=== PATIENT | male | born 1995 | race Caucasian/White ===

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

== ENCOUNTER 2020-05-06 18:09 | Emergency (ER) | payer BC, OTHER ==
[~2020-05-06] VITALS: Ht 185.4 cm; Wt 74.6 kg
--- NOTE | 2020-05-06 22:09 | REPVR ---
PROCEDURE INFORMATION: Exam: XR Abdomen, 1 View Exam date and time: 05/06/2020 9:45 PM Age: 25 years old Clinical indication: Other: Constipation R/O obstruction TECHNIQUE: Imaging protocol: XR of the abdomen. Views: Frontal supine view of the abdomen. 1 View. COMPARISON: No relevant prior studies available. FINDINGS: Gastrointestinal tract: Moderate stool throughout much of the colon. Minimal gas throughout the GI tract without abnormal dilatation. Bones/joints: Unremarkable. IMPRESSION: 1. Essentially negative abdomen with minimal gas in the GI tract. 2. Moderate stool throughout the colon. Electronically signed by: Vito Campbell On 05/06/2020 22:08:37 PM
[2020-05-06] MEDS ORDERED: FLEET ENEMA PR ONE (22:15)
[2020-05-06] MEDS ORDERED: MAGNESIUM CITRATE 300 ML BTL PO ONE (22:45)
[2020-05-06 22:48] VITALS: BP 122/71
== END 2020-05-06 22:50 | disposition home or self-care (01) ==
LOC: M ED 18:09
DX: K59.00 Constipation, unspecified (principal); F17.200 Nicotine dependence, unspecified, uncomplicated; F19.90 Other psychoactive substance use, unspecified, uncomplicated

== ENCOUNTER → 2021-05-06 | Outpatient (CLI) | payer BC | LOC: M LABSMTC 11:29 | PROVIDERS: ATTEND Pediatrics | DX: Z20.822 Contact with and (suspected) exposure to COVID-19 (principal) | CPT/HCPCS: C9803; U0003 ==